=== PATIENT | male | born 1995 | race Two or more races ===

== ENCOUNTER 2023-11-05 13:48 | Inpatient (IN) ==
[2023-11-05] MEDS: SODIUM CHLORIDE 0.9% 1,000 ML IV SCH ×4 (14:46→22:30)
--- NOTE | 2023-11-05 14:47 | Emergency Department Note ---
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 History obtained at bedside from the patient via a [place] school speech language pathologist using iPad software. Patient would not give straight answers as to what type of phone how much of the phone, or when he ingested this. He initially stated it was several months ago, then he stated it was a week ago, then he noted he only began having symptoms in the last 2 to 3 days. He states he complained to medical staff that he had not had a normal bowel movement in several days. Patient admits to abdominal pain, denies vomiting, denies fevers or chills. He denies any prior ingestion of foreign bodies. He denies any prior endoscopy procedure. He denies that he takes any medications or has any other ongoing medical problems. PAST MEDICAL HISTORY:See Below PAST SURGICAL HISTORY:See Below FAMILY HISTORY:See Below SOCIAL HISTORY:See Below HOME MEDICATIONS:See Below ALLERGIES:See Below VITALS:See Below PHYSICAL EXAMINATION: GENERAL: alert, well appearing, well nourished, no distress, non-toxic EYE EXAM: normal conjunctiva, PERRL and EOM's grossly intact OROPHARYNX: no exudate, no erythema, lips, buccal mucosa, and tongue normal and mucous membranes are moist NECK: supple, no nuchal rigidity, no adenopathy, non-tender LUNGS: Clear to auscultation. Normal chest wall mechanics, no w/r/r HEART: no murmurs, S1 normal and S2 normal ABDOMEN: abdomen soft, non-tender, normo-active bowel sounds, no masses, no rebound or guarding. SKIN: no rashes, petechiae, orbruising UPPER EXTREMITIES: upper extremities are grossly normal. FROM, nml pulses b/l. LOWER EXTREMITIES: No pitting edema. FROM, nml pulses b/l. NEURO EXAM: Normal sensorium, cranial nerves II-XII grossly intact, normal speech, no facial droop,nogross weakness of arms, no gross weakness of legs. Gross sensation intact. No ataxia. Vital Signs: reviewed and remarkable Differential Diagnosis: [] MEDICAL DECISION MAKING: This is a 28-year-old male from a local correctional facility who presents due to complaint of abdominal pain and ingested foreign body. Despite use of iPad school speech language pathologist patient will not disclose when he swallowed these items but states he did swallow a complete cell phone. Patient denied any other medical problems. He was afebrile and vital signs stable. Labs drawn and sent, IV established, xrays performed at bedside and interpreted by me and patient monitored on telemetry. He was started on IV fluid hydration. On-call GI was contacted who made arrangements to take the patient to endoscopy for removal of foreign bodies. Patient updated on this plan at bedside and was in agreement. Consultation(s): 1440: On-call GI, Dr. Rehman, notified via [place] text to responded promptly. She will make arrangements for EGD. ER Treatment Provided: See below Diagnostics Interpreted By Me: -Cardiac Monitoring: An order was placed for continuous cardiac monitoring. The monitor shows a rate of 70 with normal sinus rhythm. -Laboratory studies: As stated above and show below. -Imaging studies: X-ray Chest: A single view study of the chest was reviewed and was negative for cardiomegaly, focal infiltrate, effusion, pulmonary edema, or wide mediastinum. Foreign body noted in the stomach. No FA. KUB: Foreign body noted in the stomach. Triage Nursing Note Reviewed Prior/Outside Records Reviewed Past Med/Surg History Problem List (Updated 11/05/23 @ 18:57 by Lance Jones MD) Bipolar disorder Foreign body ingestion (Acute) Social History Smoking Status: Current every day smoker Tobacco Type: Cigarettes Hx Alcohol Use: No Hx Substance Use: Yes Last Used Substance Other:: Before patient in usp Preferred Language: Refrigeration Tech Required: Yes Current Living Situation: Other Current Living Situation Comment: Resides at [place] Feels Safe at Home: Yes Assistive Devices: None Allergies Allergies Allergy/AdvReac Type Severity Reaction Status Date / Time No Known Allergies Allergy Unverified 11/05/23 19:43 Results & Data (ED) Vital Signs Vital Signs - 24 hr 11/05/23 13:50 11/05/23 15:33 11/05/23 15:58 Temperature 36.6 C Temperature Source Temporal Artery Scan Pulse Rate 82 Pulse Rate [Apical] 81 Pulse Rate [Right Finger] 79 Pulse Rhythm [Apical] Regular Pulse Strength [Apical] Normal Pulse Strength [Right Finger] Normal Respiratory Rate 18 16 16 Respiratory Effort / Characteristics Non-Labored Non-Labored Spontaneous Non-Labored Spontaneous Respiratory Depth Normal Normal Normal Respiratory Pattern Regular Regular Regular Blood Pressure 118/80 Blood Pressure [Right Arm] 123/79 121/79 Blood Pressure Mean 92 Blood Pressure Mean [Right Arm] 93 93 Blood Pressure Position [Right Arm] Sitting Sitting Pulse Oximetry 99 100 99 Oxygen Delivery Method Room Air Room Air Room Air Sepsis Recent Fever Within 48 Hours No Sepsis New/Unexplained Change in Mental Status No Sepsis Action Taken by Nursing No Action Required 11/05/23 18:02 11/05/23 18:10 11/05/23 18:20 Temperature 36 C L Temperature Source Temporal Artery Scan Pulse Rate Pulse Rate [Apical] 89 78 81 Pulse Rate [Right Finger] Pulse Rhythm [Apical] Regular Regular Regular Pulse Strength [Apical] Normal Normal Normal Pulse Strength [Right Finger] Respiratory Rate 18 18 16 Respiratory Effort / Characteristics Non-Labored Spontaneous Non-Labored Spontaneous Non-Labored Spontaneous Respiratory Depth Normal Normal Normal Respiratory Pattern Regular Regular Regular Blood Pressure Blood Pressure [Right Arm] 121/84 125/86 114/85 Blood Pressure Mean Blood Pressure Mean [Right Arm] 96 99 94 Blood Pressure Position [Right Arm] Semi-fowlers Semi-fowlers Semi-fowlers Pulse Oximetry 99 100 99 Oxygen Delivery Method Room Air Room Air Room Air Sepsis Recent Fever Within 48 Hours Sepsis New/Unexplained Change in Mental Status Sepsis Action Taken by Nursing Laboratory Data 11/05/23 15:00 11/05/23 15:00 Lab Results 11/05/23 Range/Units 15:00 WBC 6.65 (4.8-10.8) K/ul RBC 5.62 (4.70-6.10) M/uL Hgb 16.2 (14.0-18.0) g/dl Hct 46.8 (42.0-52.0) % MCV 83.3 (80.0-100.0) fL MCH 28.8 (25.0-34.0) pg MCHC 34.6 (32.0-36.0) g/dL RDW Std Deviation 35.7 L (36.4-46.3) fL RDW Coeff of Sophia 11.9 (11.5-14.5) % Plt Count 239 (130-400) K/uL MPV 10.5 (9.4-12.4) fL Immature Gran % (Auto) 0.3 % Neut % (Auto) 62.9 % Lymph % (Auto) 26.2 % [place] % (Auto) 7.8 % Eos % (Auto) 2.3 % Baso % (Auto) 0.5 % Neut # (Auto) 4.19 (1.40-6.50) K/uL Lymph # (Auto) 1.74 (1.20-3.40) K/uL [place] # (Auto) 0.52 (0.11-0.59) K/uL Eos # (Auto) 0.15 (0.00-0.50) K/uL Baso # (Auto) 0.03 (0.00-0.20) K/uL Immature Gran # (Auto) 0.02 (0.01-0.20) K/uL Sodium 136 (136-145) mmol/L Potassium 4.5 (3.5-5.1) mmol/L Chloride 99 (98-107) mmol/L Carbon Dioxide 31 (21-32) mmol/L Anion Gap 6 (3-11) BUN 16 (6-23) mg/dl Creatinine 1.20 (0.6-1.4) mg/dl Est Cr Clr Drug Dosing 96.6 ml/min Est GFR ( Amer) 96.1 ml/min Est GFR (Non-Af Amer) 83.0 ml/min BUN/Creatinine Ratio 13.3 (10-20) Glucose 102 H (70-99(Fasting)) mg/dl Calcium 10.5 H (8.6-10.3) mg/dl Total Bilirubin 1.3 H (0.2-1.0) mg/dl AST 12 L (13-39) U/L ALT 8 (7-52) U/L Alkaline Phosphatase 62 (34-104) U/L Total Protein 7.9 (6.0-8.3) gm/dl Albumin 5.1 H (3.4-5.0) gm/dl Globulin 2.8 (2.5-4.0) gm/dl Albumin/Globulin Ratio 1.8 (0.9-2) Administered Medications Acetaminophen (Ofirmev) 1,000 mg in 100 mls @ 400 mls/hr IV Q8H PRN PRN Reason: Pain or Fever Stop: 11/08/23 18:29 Last Infusion: 11/05/23 21:46 Dose: Infused Documented By: KDKina Admin: 11/05/23 21:19 Dose: 400 mls/hr Documented By: KDKina Sodium Chloride (Nss) 1,000 mls @ 125 mls/hr IV .Q8H [facility] Stop: 11/06/23 13:59 Last Admin: 11/05/23 21:30 Dose: 125 mls/hr [place]ed By: [facility] [place] Medications Sodium Chloride (Nss) 1,000 mls @ 125 mls/hr IV .Q8H KYE Stop: 11/06/23 06:44 Last Infusion: 11/05/23 22:33 Dose: Infused Documented By: Admin: 11/05/23 14:46 Dose: 125 mls/hr Documented By: [facility] Sodium Chloride (Nss) 1,000 mls @ 80 mls/hr IV .[id number] [facility] Stop: 11/06/23 19:29 Last Admin: 11/05/23 20:00 Dose: Not Given Documented By: KDKina Pantoprazole Sodium 40 mg/ (Syringe) 10 mls @ 5 mls/min IV NOW ONE Stop: 11/05/23 20:01 Last Admin: 11/05/23 21:04 Dose: 5 mls/min Documented By: KULDEEP Sodium Chloride (Nss) 1,000 mls @ 80 mls/hr IV .[id number] [facility] Stop: 11/06/23 22:59 Last Admin: 11/05/23 22:30 Dose: Not Given Documented By: [facility] [place] Admin: 11/05/23 22:30 Dose: Not Given Documented By: [facility] [place] Imaging Data Radiologist's Impression: Chest X-Ray 11/05/23 14:03 XR chest 1V portable, XR KUB/Abdomen 1 view HISTORY: Evaluate for foreign body. COMPARISON: None. FINDINGS: No pneumothorax. No pleural effusions. The lungs are clear. The heart is normal in size. There is a right supraclavicular bone which is likely external to the patient. There is an 8.2 cm electronic device in the expected location of the stomach. Qrvr-es-fwgiohbd fecal retention. No evidence for a bowel obstruction. No pneumoperitoneum. No pneumatosis. A 2.2 cm oval-shaped density overlying the left pubic bone also favors an external button. IMPRESSION: 1. An 8.2 cm electronic device within the left upper quadrant likely within the stomach. 2. There is a right supraclavicular button. There is also a 2.2 cm oval-shaped density overlying the left pubic bone which also favors a button. These are likely external to the patient. ACT 112: Negative or not required by law. Electronically signed by: Krzysztof Blake M.D. 11/05/2023 2:52 PM KUB X-Ray 11/05/23 14:03 XR chest 1V portable, XR KUB/Abdomen 1 view HISTORY: Evaluate for foreign body. COMPARISON: None. FINDINGS: No pneumothorax. No pleural effusions. The lungs are clear. The heart is normal in size. There is a right supraclavicular bone which is likely external to the patient. There is an 8.2 cm electronic device in the expected location of the stomach. Xspo-vg-frdjfdjk fecal retention. No evidence for a bowel obstruction. No pneumoperitoneum. No pneumatosis. A 2.2 cm oval-shaped density overlying the left pubic bone also favors an external button. IMPRESSION: 1. An 8.2 cm electronic device within the left upper quadrant likely within the stomach. 2. There is a right supraclavicular button. There is also a 2.2 cm oval-shaped density overlying the left pubic bone which also favors a button. These are likely external to the patient. ACT 112: Negative or not required by law. Electronically signed by: Krzysztof Blake M.D. 11/05/2023 2:52 PM Discharge Plan Visit Data Chief Complaint: Foreign Body Stated Complaint: SWALLOWED FOREIGN OBJECT ED Provider: Camila Medina Discharge Problem: Foreign body ingestion Patient Disposition: Admitted As Inpatient Discharge Instructions Interventions: ED Discharge Assessment Last Done: 11/05/23 15:58
--- NOTE | 2023-11-05 14:53 | XRay Report ---
XR chest 1V portable, XR KUB/Abdomen 1 view HISTORY: Evaluate for foreign body. COMPARISON: None. FINDINGS: No pneumothorax. No pleural effusions. The lungs are clear. The heart is normal in size. Th ere is a right supraclavicular bone which is likely external to the patient. There is an 8.2 cm elect ronic device in the expected location of the stomach. Qlvo-vm-diwbtzec fecal retention. No evidence f or a bowel obstruction. No pneumoperitoneum. No pneumatosis. A 2.2 cm oval-shaped density overlying t he left pubic bone also favors an external button. IMPRESSION: 1. An 8.2 cm electronic device within the left upper quadrant likely within the stomach. 2. There is a right supraclavicular button. There is also a 2.2 cm oval-shaped density overlying the left pubic bone which also favors a button. These are likely external to the patient. ACT 112: Negative or not required by law. Electronically signed by: Krzysztof Blake M.D. 11/05/2023 2:52 PM
[2023-11-05 15:16] LABS: Basophils # (auto) 0.03 K/uL (0.00-0.20); Basophils % (auto) 0.5 %; Eosinophils # (auto) 0.15 K/uL (0.00-0.50); Eosinophils % (auto) 2.3 %; Hematocrit (blood only) 46.8 % (42.0-52.0); Hemoglobin 16.2 g/dl (14.0-18.0); Immature Granulocytes # (auto) 0.02 K/uL (0.01-0.20); Immature Granulocytes % (auto) 0.3 %; Lymphocytes # (auto) 1.74 K/uL (1.20-3.40); Lymphocytes % (auto) 26.2 %; Mean Corpuscular Hemoglobin 28.8 pg (25.0-34.0); Mean Corpuscular Hgb Conc 34.6 g/dL (32.0-36.0); Mean Corpuscular Volume 83.3 fL (80.0-100.0); Mean Platelet Volume 10.5 fL (9.4-12.4); Monocytes # (auto) 0.52 K/uL (0.11-0.59); Monocytes % (auto) 7.8 %; Neutrophils # (auto) 4.19 K/uL (1.40-6.50); Neutrophils % (auto) 62.9 %; Platelet Count 239 K/uL (130-400); RDW Coefficient of Variation 11.9 % (11.5-14.5); RDW Standard Deviation 35.7 fL (36.4-46.3); Red Blood Count 5.62 M/uL (4.70-6.10); White Blood Count 6.65 K/ul (4.8-10.8)
[2023-11-05 15:34] LABS: Albumin Globulin Ratio 1.8 (0.9-2); Albumin Level 5.1 gm/dl (3.4-5.0); BUN Creatinine Ratio 13.3 (10-20); Bilirubin,Total 1.3 mg/dl (0.2-1.0); Calcium 10.5 mg/dl (8.6-10.3); Creatinine Clr Calc Pharmacy 96.6 ml/min; Est GFR (African American) 96.1 ml/min; Globulin 2.8 gm/dl (2.5-4.0); Potassium 4.5 mmol/L (3.5-5.1); Total Protein 7.9 gm/dl (6.0-8.3)
--- NOTE | 2023-11-05 15:52 | Gastrointestinal Consultation ---
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 Abdominal xray shows an electronic device likely in the gastric fundus. Patient History Social History Smoking Status: Never smoker Preferred Language: Samoan Feels Safe at Home: Yes Review of Systems Review of Systems: All systems reviewed & are unremarkable except as noted in HPI & below Physical Exam Constitutional: WD/WN, vitals as above Eyes: PERRL, conjunctivae normal, anicteric sclerae Cardiovascular: RRR, no murmur, no edema Gastrointestinal (Abdomen): Percussion/Palpation: + abdomen tender and abdomen soft Results & Data Vital Signs (Past 12 Hours) Vital Signs Temp Pulse Pulse Resp BP BP Pulse Ox 11/05/23 15:33 79 16 123/79 100 11/05/23 13:50 36.6 C 82 18 118/80 99 O2 Del Method 11/05/23 15:33 Room Air 11/05/23 13:50 Room Air Laboratory Results Lab Results 11/05/23 Range/Units 15:00 WBC 6.65 (4.8-10.8) K/ul RBC 5.62 (4.70-6.10) M/uL Hgb 16.2 (14.0-18.0) g/dl Hct 46.8 (42.0-52.0) % MCV 83.3 (80.0-100.0) fL MCH 28.8 (25.0-34.0) pg MCHC 34.6 (32.0-36.0) g/dL RDW Std Deviation 35.7 L (36.4-46.3) fL RDW Coeff of Sophia 11.9 (11.5-14.5) % Plt Count 239 (130-400) K/uL MPV 10.5 (9.4-12.4) fL Immature Gran % (Auto) 0.3 % Neut % (Auto) 62.9 % Lymph % (Auto) 26.2 % [place] % (Auto) 7.8 % Eos % (Auto) 2.3 % Baso % (Auto) 0.5 % Neut # (Auto) 4.19 (1.40-6.50) K/uL Lymph # (Auto) 1.74 (1.20-3.40) K/uL [place] # (Auto) 0.52 (0.11-0.59) K/uL Eos # (Auto) 0.15 (0.00-0.50) K/uL Baso # (Auto) 0.03 (0.00-0.20) K/uL Immature Gran # (Auto) 0.02 (0.01-0.20) K/uL Sodium 136 (136-145) mmol/L Potassium 4.5 (3.5-5.1) mmol/L Chloride 99 (98-107) mmol/L Carbon Dioxide 31 (21-32) mmol/L Anion Gap 6 (3-11) BUN 16 (6-23) mg/dl Creatinine 1.20 (0.6-1.4) mg/dl Est Cr Clr Drug Dosing 96.6 ml/min Est GFR ( Amer) 96.1 ml/min Est GFR (Non-Af Amer) 83.0 ml/min BUN/Creatinine Ratio 13.3 (10-20) Glucose 102 H (70-99(Fasting)) mg/dl Calcium 10.5 H (8.6-10.3) mg/dl Total Bilirubin 1.3 H (0.2-1.0) mg/dl AST 12 L (13-39) U/L ALT 8 (7-52) U/L Alkaline Phosphatase 62 (34-104) U/L Total Protein 7.9 (6.0-8.3) gm/dl Albumin 5.1 H (3.4-5.0) gm/dl Globulin 2.8 (2.5-4.0) gm/dl Albumin/Globulin Ratio 1.8 (0.9-2) Diagnostic Findings Chest X-Ray 11/05/23 14:03 XR chest 1V portable, XR KUB/Abdomen 1 view HISTORY: Evaluate for foreign body. COMPARISON: None. FINDINGS: No pneumothorax. No pleural effusions. The lungs are clear. The heart is normal in size. There is a right supraclavicular bone which is likely external to the patient. There is an 8.2 cm electronic device in the expected location of the stomach. Epqk-yr-myhqfklw fecal retention. No evidence for a bowel obstruction. No pneumoperitoneum. No pneumatosis. A 2.2 cm oval-shaped density overlying the left pubic bone also favors an external button. IMPRESSION: 1. An 8.2 cm electronic device within the left upper quadrant likely within the stomach. 2. There is a right supraclavicular button. There is also a 2.2 cm oval-shaped density overlying the left pubic bone which also favors a button. These are likely external to the patient. ACT 112: Negative or not required by law. Electronically signed by: Krzysztof Blake M.D. 11/05/2023 2:52 PM KUB X-Ray 11/05/23 14:03 XR chest 1V portable, XR KUB/Abdomen 1 view HISTORY: Evaluate for foreign body. COMPARISON: None. FINDINGS: No pneumothorax. No pleural effusions. The lungs are clear. The heart is normal in size. There is a right supraclavicular bone which is likely external to the patient. There is an 8.2 cm electronic device in the expected location of the stomach. Bwpp-oy-futajnfl fecal retention. No evidence for a bowel obstruction. No pneumoperitoneum. No pneumatosis. A 2.2 cm oval-shaped density overlying the left pubic bone also favors an external button. IMPRESSION: 1. An 8.2 cm electronic device within the left upper quadrant likely within the stomach. 2. There is a right supraclavicular button. There is also a 2.2 cm oval-shaped d ensity overlying the left pubic bone which also favors a button. These are likely external to the patient. ACT 112: Negative or not required by law. Electronically signed by: Krzysztof Blake M.D. 11/05/2023 2:52 PM PG Care Time/CCT Total # of Minutes Spent Total Time Spent with Patient: Total time spent is greater than 50% in coordination of care (as documented) at patient's floor/unit and/or counseling patient: Coding Level of Care Code 50810 OFFICE CONSULT LVL 06/30M Diagnoses Foreign body ingestion T18.9XXA
[2023-11-05] MEDS ORDERED: PROPOFOL IV EMULSION 10 MG/ML 20 ML VIAL IV ONE (16:04)
[2023-11-05] MEDS ORDERED: SUCCINYLCHOLINE CHLORIDE 20 MG/ML 10 ML VIAL IV ONE (16:04)
--- NOTE | 2023-11-05 16:32 | Anesthesiology Consultation ---
Date of Service November 05, 2023 Assessment & Plan ASA ASA2E Proposed Anesthesia Anesthesia Type: General Risk / Benefits Reviewed With: PT / POA / Parent / Guardian, Accepts Plan and Informed Consent Obtained Additional Comments: pt was asked if he wanted an court interpreter used but declined saying he understood/spoke irish well. there were no issues with the H and P in terms of communicating. History Surgery Operation Date: 11/05/23 16:15 Proposed Procedures p EGD Foreign Body Removal - Milli Rehman MD Height/Weight Height: 5 ft 7 in Weight: 83.9 kg Medications Active Medications Generic Name Dose Route Start Last Admin Trade Name Freq PRN Reason Stop Dose Admin Sodium Chloride 1,000 mls @ 125 mls/hr 11/05/23 14:45 11/05/23 14:46 Nss IV 12/05/23 14:44 125 mls/hr .Q8H KYE Administration NPO Date Last Intake of Fluids: 11/05/23 Time Last Intake of Fluids: 11:00 Date Last Intake of Solids: 11/05/23 Time Last Intake of Solids: 11:00 Exercise / Class Metabolic Activity II 4-5 Yardwork/Stairs/Walk up hill Past Anesthesia History No Hx of Anesthesia Complications and No Family Hx of Anesthesia Complications History of PONV No Hx of PONV and No Hx of Motion Sickness Social History Smoking Status: Never smoker Review of Systems denies fever/cough/ colds/ chest pain/ SOB/ ESTEFANY denies ESTEFANY Physical Exam Vital Signs Last Vital Signs Temp 36.6 C 11/05/23 13:50 Pulse 81 11/05/23 15:58 Resp 16 11/05/23 15:58 BP 121/79 11/05/23 15:58 Pulse Ox 99 11/05/23 15:58 O2 Del Method Room Air 11/05/23 15:58 ENMT Mouth: no TMJ abnormality and no dentition abnormality Thyromental Distance: > or= 3.5 Finger Breadths Mallampati Class: II Neck + facial hair; neck extension not limited Respiratory normal respiratory effort; no respiratory distress Auscultation: lungs clear to auscultation bilaterally Cardiovascular Rate/Rhythm: regular rate and regular rhythm Neurologic moves all extremities Psychiatric Orientation: alert and oriented x 3 Testing Laboratory Results 11/05/23 15:00 11/05/23 15:00
[2023-11-05] MEDS ORDERED: ONDANSETRON INJ 2 MG/ML 2 ML VIAL IV PRN ×2 (16:33→18:30)
[2023-11-05] MEDS ORDERED: ePHEDrine sulfate 50 MG/ML AMP IV PRN (16:33)
[2023-11-05] MEDS ORDERED: fentaNYL citrate PF 100 MCG/2 ML VIAL IV PRN (16:33)
[2023-11-05] MEDS ORDERED: HYDROmorphone INJ 1 MG/ML SYRINGE IV PRN (16:33)
[2023-11-05] MEDS ORDERED: ATROPINE SULFATE 0.1 MG/ML 10ML SYR IV PRN (16:33)
[2023-11-05] MEDS ORDERED: fentaNYL citrate PF 100 MCG/2 ML VIAL ONE (16:46)
[2023-11-05] MEDS ORDERED: Patient's ALLERGY Info needs ENTERED STA (16:54)
[2023-11-05] MEDS ORDERED: ROCURONIUM BROMIDE 10 MG/ML 5 ML VIAL IV ONE (16:55)
[2023-11-05] MEDS ORDERED: SUGAMMADEX SODIUM 200 MG/2 ML VIAL IV ONE (16:56)
--- NOTE | 2023-11-05 18:15 | Anesthesiology Progress Note ---
Date of Service November 05, 2023 Anesthesia Post Procedure Vital Signs Vital Signs: Temp Pulse Pulse Pulse Resp BP BP 11/05/23 18:02 36 C L 89 18 121/84 11/05/23 15:58 81 16 121/79 11/05/23 15:33 79 16 123/79 11/05/23 13:50 36.6 C 82 18 118/80 Pulse Ox O2 Del Method 11/05/23 18:02 99 Room Air 11/05/23 15:58 99 Room Air 11/05/23 15:33 100 Room Air 11/05/23 13:50 99 Room Air Transfer of Care Handoff Completed per policy Notes Mental Status: alert / awake / arousable and participated in evaluation Patient Amnestic to Procedure: Yes Nausea / Vomiting: adequately controlled Pain: adequately controlled Airway Patency, RR, SpO2: stable & adequate BP & HR: stable & adequate Hydration State: stable & adequate Anesthetic Complications: no major complications apparent and Pt Satisfied with anesthetic care
--- NOTE | 2023-11-05 18:24 | GI REPORT ---
[facility] Patient: CARMEN HIGGINS : 1995 Sex at : Male Age: 28 Years Procedure: Upper GI endoscopy Date: 11/05/2023 Attending Physician: Milli Rehman MD Referring MD: Claribel Ugalde Indications: - Removal of foreign body in the stomach Medications: - General Anesthesia Complications: - No immediate complications. Estimated Blood Loss: - Estimated blood loss: None. Procedure: - Prior to the procedure, a History and Physical was performed, and patient medications and allergies were reviewed. The patient's tolerance of previous anesthesia was also reviewed. The risks and benefits of the procedure and the sedation options and risks were discussed with the patient. All questions were answered, and informed consent was obtained. Prior Anticoagulants: The patient has taken no anticoagulant or antiplatelet agents. ASA Grade Assessment: II - A patient with mild systemic disease. After reviewing the risks and benefits, the patient was deemed in satisfactory condition to undergo the procedure. - The egd scope was introduced through the mouth and advanced to the third part of the duodenum. - The patient tolerated the procedure well. - The upper GI endoscopy was technically difficult and complex due to presence of foreign body. Findings: - A cell phone and a phone chargerwere found wrapped within pieces of a latex glove in the gastric body. Removal of the concrete buildings assembler was accomplished with a rat tooth grasper. Multiple attempts were made to remove the cell phone using a grasper, snare and net were unsuccessful. The glove was disrupted during attempts to remove the phone and pieces of the glove were removed. Once exposed, the orientation of the phone was such that the LES would and could not accept the foreign body for removal. Impression: - Were found in the stomach. Removal was successful. Recommendation: - NPO. - Continue present medications. - Admit to hospitalist service with surgery consult for surgical removal of remaining intragastric cell phone. Procedure Code(s): - 16405, Esophagogastroduodenoscopy, flexible, transoral; with removal of foreign body(s) Diagnosis Code(s): - T18.2XXA, Foreign body in stomach, initial encounter CPT(R) - 2022 copyright [employer]. All Rights Reserved. The CPT codes, CCI edits and ICD codes generated are intended as suggestions and were generated based on input data. These codes are preliminary and upon marketing agent review may be revised to meet current compliance and payer requirements. The provider is responsible for the final determination of appropriate codes, and modifiers. Milli Rehman MD This document has been electronically signed. Note Initiated:11/05/2023 Note Completed:11/05/2023 6:23 PM \\[email or web address]\Data\Provation\Results\[email or web address]\[id number]
--- NOTE | 2023-11-05 18:58 | History & Physical Report ---
Date of Service November 05, 2023 Assessment & Plan (1) Foreign body ingestion: (2) Bipolar disorder: Plan Foreign body ingestion- Patient ingested a telephone cord and 8.2 cm phone earlier in the day He was taken emergently to the OR, and gastroenterology was able to remove the cord, but was unable to remove the phone Patient will be admitted to the medical telemetry unit overnight, for possible exploratory lap in the a.m. by general surgery Pantoprazole 40 mg IV daily Zofran 4 mg IV every 6 hours as needed NSS at 80 mL/h x 2 L Acetaminophen 1 g IV every 8 hours as needed for mild pain or fever Repeat CBC with differential, chemistry profile and magnesium level in the a.m. Consults to gastroenterology and general surgery History of Present Illness Chief Complaint: The patient presented to the emergency department from local senior living, due to report of swallowing a cell phone and accompanying member of the legislative [place]. He was taken emergently to the OR, and GI was able to successfully remove the phone cord, however, the phone itself is unable to. 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 Gastroenterology was able to successfully remove the member of the legislative assembly, however, the phone still present in the stomach, and gastroenterology and surgery is asked the patient be admitted to the medical service Past Med/Surg History Problem List (Updated 11/05/23 @ 18:57 by Lance Jones MD) Bipolar disorder Foreign body ingestion (Acute) Social History Smoking Status: Never smoker Preferred Language: Stateless Feels Safe at Home: Yes Review of Systems Review of Systems: Review of systems and HPI are limited due to patient cooperation Physical Exam Physical Exam: the patient is awake, chooses to not respond to questions. Well developed and well nourished, normocephalic and atraumatic, lying in bed and in no acute distress. HEENT--PERRL, EOMI, mucous membranes and oropharynx dry. Neck--supple. No JVD. No bruits. Thyroid normal, trachea midline, no adenopathy. Heart--normal S1 and S2. No murmurs, rubs or gallops. Lungs--clear bilaterally, no respiratory distress, no accessory muscle use. Abdomen--normal bowel sounds and soft. Nontender. Nondistended, no hernias or masses, no organomegaly. Extremities--no cyanosis or clubbing. No edema. There are good distal pulses b/l. Dermatologic--normal skin turgor, normal color, no abnormal lymph nodes, no rash. Neurologic--cranial nerves II through XII grossly intact. Rheumatologic--normal range of motion. Psychiatric--normal affect. Results & Data Results & Data Vital Signs (Past 12 Hours) Vital Signs Temp Pulse Pulse Pulse Resp BP BP 11/05/23 18:30 36.6 C 80 18 117/80 11/05/23 18:20 81 16 114/85 11/05/23 18:10 78 18 125/86 11/05/23 18:02 36 C L 89 18 121/84 11/05/23 15:58 81 16 121/79 11/05/23 15:33 79 16 123/79 11/05/23 13:50 36.6 C 82 18 118/80 Pulse Ox O2 Del Method 11/05/23 18:30 98 Room Air 11/05/23 18:20 99 Room Air 11/05/23 18:10 100 Room Air 11/05/23 18:02 99 Room Air 11/05/23 15:58 99 Room Air 11/05/23 15:33 100 Room Air 11/05/23 13:50 99 Room Air Laboratory Results Laboratory Results WBC 6.65 K/ul (4.8-10.8) 11/05/23 15:00 RBC 5.62 M/uL (4.70-6.10) 11/05/23 15:00 Hgb 16.2 g/dl (14.0-18.0) 11/05/23 15:00 Hct 46.8 % (42.0-52.0) 11/05/23 15:00 MCV 83.3 fL (80.0-100.0) 11/05/23 15:00 MCH 28.8 pg (25.0-34.0) 11/05/23 15:00 MCHC 34.6 g/dL (32.0-36.0) 11/05/23 15:00 RDW Std Deviation 35.7 fL (36.4-46.3) L 11/05/23 15:00 RDW Coeff of Sophia 11.9 % (11.5-14.5) 11/05/23 15:00 Plt Count 239 K/uL (130-400) 11/05/23 15:00 MPV 10.5 fL (9.4-12.4) 11/05/23 15:00 Immature Gran % (Auto) 0.3 % 11/05/23 15:00 Neut % (Auto) 62.9 % 11/05/23 15:00 Lymph % (Auto) 26.2 % 11/05/23 15:00 Grant % (Auto) 7.8 % 11/05/23 15:00 Eos % (Auto) 2.3 % 11/05/23 15:00 Baso % (Auto) 0.5 % 11/05/23 15:00 Neut # (Auto) 4.19 K/uL (1.40-6.50) 11/05/23 15:00 Lymph # (Auto) 1.74 K/uL (1.20-3.40) 11/05/23 15:00 Grant # (Auto) 0.52 K/uL (0.11-0.59) 11/05/23 15:00 Eos # (Auto) 0.15 K/uL (0.00-0.50) 11/05/23 15:00 Baso # (Auto) 0.03 K/uL (0.00-0.20) 11/05/23 15:00 Immature Gran # (Auto) 0.02 K/uL (0.01-0.20) 11/05/23 15:00 Sodium 136 mmol/L (136-145) 11/05/23 15:00 Potassium 4.5 mmol/L (3.5-5.1) 11/05/23 15:00 Chloride 99 mmol/L (98-107) 11/05/23 15:00 Carbon Dioxide 31 mmol/L (21-32) 11/05/23 15:00 Anion Gap 6 (3-11) 11/05/23 15:00 BUN 16 mg/dl (6-23) 11/05/23 15:00 Creatinine 1.20 mg/dl (0.6-1.4) 11/05/23 15:00 Est Cr Clr Drug Dosing 96.6 ml/min 11/05/23 15:00 Est GFR ( Amer) 96.1 ml/min 11/05/23 15:00 Est GFR (Non-Af Amer) 83.0 ml/min 11/05/23 15:00 BUN/Creatinine Ratio 13.3 (10-20) 11/05/23 15:00 Glucose 102 mg/dl (70-99(Fasting)) H 11/05/23 15:00 Calcium 10.5 mg/dl (8.6-10.3) H 11/05/23 15:00 Total Bilirubin 1.3 mg/dl (0.2-1.0) H 11/05/23 15:00 AST 12 U/L (13-39) L 11/05/23 15:00 ALT 8 U/L (7-52) 11/05/23 15:00 Alkaline Phosphatase 62 U/L (34-104) 11/05/23 15:00 Total Protein 7.9 gm/dl (6.0-8.3) 11/05/23 15:00 Albumin 5.1 gm/dl (3.4-5.0) H 11/05/23 15:00 Globulin 2.8 gm/dl (2.5-4.0) 11/05/23 15:00 Albumin/Globulin Ratio 1.8 (0.9-2) 11/05/23 15:00 Impressions Chest X-Ray 11/05/23 14:03 XR chest 1V portable, XR KUB/Abdomen 1 view HISTORY: Evaluate for foreign body. COMPARISON: None. FINDINGS: No pneumothorax. No pleural effusions. The lungs are clear. The heart is normal in size. There is a right supraclavicular bone which is likely external to the patient. There is an 8.2 cm electronic device in the expected location of the stomach. Hyod-ca-lqphbmoi fecal retention. No evidence for a bowel obstruction. No pneumoperitoneum. No pneumatosis. A 2.2 cm oval-shaped density overlying the left pubic bone also favors an external button. IMPRESSION: 1. An 8.2 cm electronic device within the left upper quadrant likely within the stomach. 2. There is a right supraclavicular button. There is also a 2.2 cm oval-shaped density overlying the left pubic bone which also favors a button. These are likely external to the patient. ACT 112: Negative or not required by law. Electronically signed by: Krzysztof Blake M.D. 11/05/2023 2:52 PM KUB X-Ray 11/05/23 14:03 XR chest 1V portable, XR KUB/Abdomen 1 view HISTORY: Evaluate for foreign body. COMPARISON: None. FINDINGS: No pneumothorax. No pleural effusions. The lungs are clear. The heart is normal in size. There is a right supraclavicular bone which is likely external to the patient. There is an 8.2 cm electronic device in the expected location of the stomach. Dmrd-fb-tqxfgsml fecal retention. No evidence for a bow el obstruction. No pneumoperitoneum. No pneumatosis. A 2.2 cm oval-shaped density overlying the left pubic bone also favors an external button. IMPRESSION: 1. An 8.2 cm electronic device within the left upper quadrant likely within the stomach. 2. There is a right supraclavicular button. There is also a 2.2 cm oval-shaped density overlying the left pubic bone which also favors a button. These are likely external to the patient. ACT 112: Negative or not required by law. Electronically signed by: Krzysztof Blake M.D. 11/05/2023 2:52 PM Code Status & VTE Plan Code Status Full code VTE Prophylaxis Plan VTE Prophylaxis will be ordered: Yes PG Care Time/CCT Total # of Minutes Spent Total Time Spent with Patient: Total time spent is greater than 50% in coordination of care (as documented) at patient's floor/unit and/or counseling patient: Coding Level of Care Code 63518 INT INP/OBS CARE 2/55MIN Diagnoses Foreign body ingestion T18.9XXA Bipolar disorder F31.9
[2023-11-05] MEDS: PANTOprazole 40 MG in SYRINGE 0 ML IV ONE (21:04)
[2023-11-05] MEDS: ACETAMINOPHEN 1,000 MG/100 ML VIAL IV PRN (21:19)
[2023-11-06] MEDS: KETOROLAC TROMETHAMINE 15 MG/ML VIAL IV ONE (02:43)
[2023-11-06] MEDS: IBUPROFEN 600 MG TAB PO STA (03:02)
--- NOTE | 2023-11-06 07:27 | XRay Report ---
KUB HISTORY: eval location of foreign body COMPARISON: KUB 11/05/2023. FINDINGS: The bowel gas pattern is unremarkable. There are no dilated loops of small bowel to suggest an obstruction. No renal calculi. No ureteral calculi. No pneumoperitoneum or pneumatosis. There is a 6.7 cm electronic device within the left upper quadrant. This is in the expected location of the s tomach and is in a similar location the prior KUB. The lung bases are clear. IMPRESSION: A 6.7 cm electronic device within the left upper quadrant. This is in the expected location of the st omach. ACT 112: Negative or not required by law. Electronically signed by: Krzysztof Blake M.D. 11/06/2023 7:26 AM
[2023-11-06] MEDS ORDERED: MIDAZOLAM HCL 1 MG/ML 2ML VIAL ONE (08:12)
[2023-11-06] MEDS ORDERED: fentaNYL citrate PF 100 MCG/2 ML VIAL ONE ×2 (08:12→09:26)
--- NOTE | 2023-11-06 08:25 | Anesthesiology Consultation ---
Date of Service November 06, 2023 Assessment & Plan Consults Requested medical & cardiac Pulmonary History Surgery Operation Date: 11/05/23 16:15 Proposed Procedures p EGD Foreign Body Removal - Milli Rehman MD Operation Date: 11/06/23 07:00 Proposed Procedures p Open Removal of Foreign Body ( failed attempt via EGD to Remove) - Antonio Henderson DO, FACS Height/Weight Height: 5 ft 7 in Weight: 84.3 kg Allergies Allergy/AdvReac Type Severity Reaction Status Date / Time No Known Allergies Allergy Unverified 11/05/23 19:43 Medications Active Medications Generic Name Dose Route Start Last Admin Trade Name Freq PRN Reason Stop Dose Admin Acetaminophen 1,000 mg in 100 mls @ 400 mls/hr 11/05/23 18:30 11/05/23 21:46 Ofirmev IV 11/08/23 18:29 Infused Q8H PRN Infusion Pain or Fever Sodium Chloride 1,000 mls @ 125 mls/hr 11/05/23 22:00 11/06/23 05:36 Nss IV 11/06/23 13:59 125 mls/hr .Q8H KYE Administration NPO Date Last Intake of Fluids: 11/05/23 Time Last Intake of Fluids: 11:00 Date Last Intake of Solids: 11/05/23 Time Last Intake of Solids: 11:00 Social History Smoking Status: Current every day smoker Hx Alcohol Use: No Hx Substance Use: Yes substance use type: painkillers Last Used Substance Other:: Before patient in senior care Physical Exam Vital Signs Last Vital Signs Temp 36.9 C 11/06/23 08:13 Pulse 67 11/06/23 08:13 Resp 17 11/06/23 08:13 BP 123/71 11/06/23 08:13 Pulse Ox 100 11/06/23 08:13 O2 Del Method Room Air 11/06/23 08:13 Testing Laboratory Results 11/05/23 15:00 11/05/23 15:00
[2023-11-06] MEDS ORDERED: ePHEDrine sulfate 50 MG/ML AMP IV PRN (08:28)
[2023-11-06] MEDS ORDERED: ATROPINE SULFATE 0.1 MG/ML 10ML SYR IV PRN (08:28)
[2023-11-06] MEDS ORDERED: DROPERIDOL 5 MG/2 ML VIAL IV PRN (08:28)
--- NOTE | 2023-11-06 08:28 | Surgery Consultation ---
Date of Consultation November 06, 2023 Assessment & Plan (1) Foreign body ingestion: Gastric foreign body appears to be in the stomach Plan for diagnostic laparoscopy, removal of gastric foreign body, possible bowel resection, possible open Risk of the procedure were discussed to include but not limited to bleeding, infection, leak, damage to surrounding structures, need for future more extensive surgery, and the risk of anesthesia (2) Bipolar disorder: History of Present Illness Attending Physician: Deshaun Reyes History of Present Illness 28-year-old incarcerated male presented with ingested foreign body. He apparently swallowed a cellular phone. Attempts at endoscopic removal yesterday were unsuccessful due to the size of the object preventing it from making it through the GE junction. No prior abdominal surgeries. No other medical problems. No allergies. 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 Current Living Situation: Other Current Living Situation Comment: Resides at [facility] Feels Safe at Home: Yes Assistive Devices: None Review of Systems Review of Systems: All systems reviewed & are unremarkable except as noted in HPI & below Physical Exam Constitutional: WD/WN, vitals as above Respiratory: normal respiratory effort, lungs clear to auscultation Cardiovascular: RRR, no murmur, no edema Gastrointestinal (Abdomen): normal bowel sounds, soft, nontender, no hepatosplenomegaly Results & Data Vital Signs (Past 12 Hours) Vital Signs Temp Pulse Pulse Resp BP Pulse Ox O2 Del Method 11/06/23 08:13 36.9 C 67 17 123/71 100 Room Air 11/06/23 02:21 36.3 C L 76 16 114/67 97 Room Air 11/05/23 22:06 36.6 C 73 18 113/70 100 Room Air 11/05/23 21:41 82 Diagnostic Findings KUB personally reviewed and interpreted agree with assessment of gastric foreign body. XR chest 1V portable, XR KUB/Abdomen 1 view HISTORY: Evaluate for foreign body. COMPARISON: None. FINDINGS: No pneumothorax. No pleural effusions. The lungs are clear. The heart is normal in size. There is a right supraclavicular bone which is likely external to the patient. There is an 8.2 cm electronic device in the expected location of the stomach. Ckfb-px-qrkijoyf fecal retention. No evidence for a bowel obstruction. No pneumoperitoneum. No pneumatosis. A 2.2 cm oval-shaped density overlying the left pubic bone also favors an external button. IMPRESSION: 1. An 8.2 cm electronic device within the left upper quadrant likely within the stomach. 2. There is a right supraclavicular button. There is also a 2.2 cm oval-shaped density overlying the left pubic bone which also favors a button. These are likely external to the patient. PG Care Time/CCT Total # of Minutes Spent Total Time Spent with Patient: Total time spent is greater than 50% in coordination of care (as documented) at patient's floor/unit and/or counseling patient: Coding Level of Care Code 01760 IN/OBS CONSULT LVL 3,45M Diagnoses Foreign body ingestion T18.9XXA Bipolar disorder F31.9
[2023-11-06] MEDS: cefOXitin 2,000 MG in DEXTROSE 5 % MINI-B 50 ML IV SCH (08:58)
[2023-11-06] MEDS ORDERED: SUGAMMADEX SODIUM 200 MG/2 ML VIAL IV ONE (10:09)
[2023-11-06] MEDS: BUPIVACAINE 0.5 % 5 MG/1 ML MPF 30ML VIAL ONE (10:48)
[2023-11-06] MEDS: BUPIVACAINE LIPOSOME 1.3% 266 MG/20 ML VIAL ONE (10:56)
--- NOTE | 2023-11-06 11:17 | Operative Report ---
PG Post Operative Report Pre & Post Diagnosis Operation Date: 11/06/23 07:00 Pre-Op Diagnosis: Foreign body ingestion Post-Op Diagnosis: Foreign body ingestion I identified the patient and participated in the time-out.: Yes Procedure Operation Date: 11/06/23 07:00 Actual Procedures p Diagnostic Laparoscopy, Mini Laparotomy, Gastrotomy with Removal of Foreign Body ( failed attempt via EGD to Remove)(Bilateral) - Antonio Henderson DO, YANCI Surgeon Antonio Henderson DO, YANCI Pan Cleaner Eleanor Parra Estimated Blood Loss 10 Findings Consistent with Post-Op Diagnosis Attempted laparoscopic removal of gastric foreign body, unable to identify within the stomach. Small upper midline laparotomy performed, 6.5 cm cellular phone removed, gastrotomy closed with purple loaded Endo SHARLENE stapler, oversewn with 3-0 silk Lembert's. NG tube confirmed in place, RACH drain placed. Exparel injected. Specimens Gastric foreign body Partial gastrectomy Anesthesia Type General Complications none Disposition Accompanied Patient To Recovery: No Disposition: Recovery Room Indications 28-year-old incarcerated male presented after swallowing a cellular phone, GI unable to remove endoscopically. Plan for diagnostic laparoscopy, removal of gastric foreign body, possible open, possible bowel resection. The risks of the procedure were discussed, all questions were answered, and the patient agreed to proceed with surgery as planned. Description of Procedure The patient was properly identified, consented, and taken to the operating room where he was placed in the supine position. General endotracheal anesthesia was induced. A alcantara catheter, an NG tube, SCDs and a safety belt were placed. Preoperative antibiotics were administered. The patient's abdomen was prepped and draped in the standard sterile fashion. Surgical timeout was performed and all parties were in agreement that this was the correct patient and procedure to be performed and we continued as planned. Incision was made in the right upper quadrant just under the ribs and the Veress needle was inserted. Saline drop test confirmed entry into the abdomen. The abdomen was insufflated with carbon dioxide the patient tolerated without incident. The abdomen was then entered using the Optiview technique and a 5 mm 30 degree scope and a 5 mm port. The trocar was removed and the abdomen explored. There was no damage from initial Veress needle or trocar placement. There is no abnormalities within the 4 quadrants of the abdomen. 5 mm ports were then placed in the supraumbilical position just off midline, and the left upper quadrant x 2. The 5 mm port in the right upper quadrant was eventually replaced with a 12 mm port. The patient was placed in reverse Trendelenburg position. We then began exploring the stomach. I was able to palpate both the NG tube as well as the suspected gastric foreign body. Sonicision was then used to create a gastrotomy in the stomach near the greater curve on the anterior margin. We confirmed entry into the stomach. I was able to identify the NG tube, however I was unable to identify the gastric foreign body. After several minutes I decided to convert to a laparotomy. The stomach wall at the gastrotomy was grasped with a laparoscopic grasper. An upper midline incision was made and deepened down to the fascia with electrocautery. The fascia was then opened in the midline with electrocautery. The peritoneum was entered. The stomach was brought through the incision and grasped with a Reading. I was then able to manually remove the foreign object from the stomach. It had dropped into the cardia. This was removed and passed off the table as specimen. This was consistent with a 6.5 cm cellular phone. No other foreign bodies were identified within the stomach. The gastrotomy was then brought through the incision and closed with a purple loaded 60 mm Endo SHARLENE stapler x 2. The staple line appeared healthy and well-perfused. There is no evidence of leak. This was reinforced with 3-0 silk Lembert sutures. The stomach was then allowed to drop back into the abdomen. The fascia was closed with #1 PDS x 2. We then reentered laparoscopically and irrigated. A 10 mm flat RACH was then placed along the greater curvature of the stomach and the staple line and exited through the left upper quadrant port. This was secured in place with a 2-0 nylon suture. The 12 mm port fascia in the right upper quadrant was closed with a Deven-Prakash device and an 0 Vicryl suture. Laparoscopy was ceased, the ports were removed, and the abdomen was allowed to collapse. The upper midline wound was irrigated with saline and hemostasis was confirmed. This was then closed with interrupted 3-0 Vicryl sutures followed by 4-0 Monocryl running subcuticular suture. The port sites was closed with 4-0 Monocryl subcuticular sutures. Dermabond was placed over all the wounds. Sterile dressing was placed around the RACH drain. The NG tube was left in place and the Alcantara catheter was removed. The patient was extubated in the operating room and taken to the PACU where he recovered without apparent incident. All sponge, instrument and needle counts were correct at the conclusion of the procedure. The patient tolerated the procedure well. The physicians hospital nursing assistant was present and scrubbed for the entire the case. She was critical in positioning the patient, prepping and draping, retraction and exposure, driving the laparoscope, removal of the gastric foreign body, closure of the stomach, closure of the fascia and incisions, and placement of the dressings. I attest to the content of the Intraoperative Record and any orders documented therein. Any exceptions are noted below.
[2023-11-06] MEDS: HYDROmorphone INJ 2 MG/ML SYR/VIAL IV PRN (11:52)
[2023-11-06] MEDS: PANTOprazole 40 MG in SYRINGE 0 ML IV SCH (13:38)
--- NOTE | 2023-11-06 14:29 | XRay Report ---
KUB CLINICAL HISTORY: Enteric tube placement. FINDINGS: 2 AP, portable, supine abdominal radiographs are compared to study performed earlier the 11/06/2023. There is a nonobstructed abdominal bowel gas pattern. A surgical drain projects from the upper abdomen. An enteric tube has been placed. The tip is coiled just below the diaphragm overl bernie the proximal stomach. No evidence of intraperitoneal free air is seen on these supine images. Th ere are no abnormal abdominal calcifications. The bony structures appear intact. IMPRESSION: 1. An enteric tube and surgical drain have been placed as above. 2. No bowel obstruction is seen. Electronically signed by: Omid Charles M.D. 11/06/2023 2:28 PM
--- NOTE | 2023-11-06 16:15 | Anesthesiology Progress Note ---
Date of Service November 06, 2023 Anesthesia Post Procedure Vital Signs Vital Signs: Temp Pulse Pulse Resp BP Pulse Ox O2 Del Method 11/06/23 15:36 37 C 98 H 15 134/79 98 Room Air 11/06/23 12:25 98 H 17 118/92 98 Room Air 11/06/23 12:10 36.9 C 92 H 13 128/89 100 Room Air 11/06/23 12:00 90 16 138/87 100 Oxymask 11/06/23 11:50 89 15 142/92 H 100 Oxymask 11/06/23 11:40 94 H 15 141/91 H 100 Oxymask 11/06/23 11:30 95 H 18 133/94 100 Oxymask 11/06/23 11:22 36.4 C L 98 H 21 135/95 100 Oxymask 11/06/23 08:13 36.9 C 67 17 123/71 100 Room Air 11/06/23 08:00 77 11/06/23 02:21 36.3 C L 76 16 114/67 97 Room Air 11/05/23 22:06 36.6 C 73 18 113/70 100 Room Air 11/05/23 21:41 82 11/05/23 19:22 36.7 C 76 16 118/77 100 Room Air 11/05/23 19:15 80 11/05/23 18:45 89 18 114/79 99 Room Air 11/05/23 18:30 36.6 C 80 18 117/80 98 Room Air 11/05/23 18:20 81 16 114/85 99 Room Air 11/05/23 18:10 78 18 125/86 100 Room Air 11/05/23 18:02 36 C L 89 18 121/84 99 Room Air O2 Flow Rate 11/06/23 15:36 11/06/23 12:25 11/06/23 12:10 11/06/23 12:00 2 11/06/23 11:50 2 11/06/23 11:40 4 11/06/23 11:30 6 11/06/23 11:22 8 11/06/23 08:13 11/06/23 08:00 11/06/23 02:21 11/05/23 22:06 11/05/23 21:41 11/05/23 19:22 11/05/23 19:15 11/05/23 18:45 11/05/23 18:30 11/05/23 18:20 11/05/23 18:10 11/05/23 18:02 Pain Intensity Throat: Pain Intensity: 4 Abdomen: Pain Intensity: 7 Transfer of Care Handoff Completed per policy Notes Mental Status: alert / awake / arousable and participated in evaluation Nausea / Vomiting: adequately controlled Pain: adequately controlled Airway Patency, RR, SpO2: stable & adequate BP & HR: stable & adequate Hydration State: stable & adequate Anesthetic Complications: no major complications apparent and Pt Satisfied with anesthetic care
[2023-11-06] MEDS: GLUCAGON FOR INJ 1 MG VIAL ONE (17:30)
[2023-11-06] MEDS: MoRPHine SULFATE 2 MG/ML CARP IV PRN (18:29)
[2023-11-06] MEDS: SODIUM CHLORIDE 0.9% 1,000 ML IV SCH (18:42)
--- NOTE | 2023-11-06 21:56 | Hospitalist Progress Note ---
Date of Service November 06, 2023 Assessment & Plan (1) Foreign body ingestion: (2) Bipolar disorder: Plan Foreign body ingestion- Patient ingested a telephone cord and 8.2 cm phone earlier in the day He was taken emergently to the OR, and gastroenterology was able to remove the cord, but was unable to remove the phone Patient will be admitted to the medical telemetry unit overnight, for possible exploratory lap in the a.m. by general surgery Pantoprazole 40 mg IV daily Zofran 4 mg IV every 6 hours as needed NSS at 80 mL/h x 2 L Acetaminophen 1 g IV every 8 hours as needed for mild pain or fever Repeat CBC with differential, chemistry profile and magnesium level in the a.m. Consults to gastroenterology and general surgery. Patient tolerated procedure to remove foreign body on 11/05 will monitor. Remain NPO overnight. Admission and Anticipated Discharge Date Admission Date: November 05, 2023 Subjective Patient reports no new symptoms. Review of Systems Review of Systems: All systems reviewed & are unremarkable except as noted in HPI & below Physical Exam Physical Exam: the patient is awake, chooses to not respond to questions. Well developed and well nourished, normocephalic and atraumatic, lying in bed and in no acute distress. HEENT--PERRL, EOMI Results & Data Results & Data Vital Signs (Past 12 Hours) Vital Signs Temp Pulse Resp BP Pulse Ox O2 Del Method O2 Flow Rate 11/06/23 19:49 37.5 C 87 20 138/79 99 Room Air 11/06/23 16:25 98 H 18 132/81 99 Oxymask 2 11/06/23 15:36 37 C 98 H 15 134/79 98 Room Air 11/06/23 14:00 103 H 18 135/86 Oxymask 4 11/06/23 13:30 93 H 20 143/88 H 100 Oxymask 10 11/06/23 13:15 138 H 24 129/85 89 L Room Air 11/06/23 13:10 125 H 20 129/83 91 Room Air 11/06/23 12:55 102 H 20 129/83 95 Room Air 11/06/23 12:25 98 H 17 118/92 98 Room Air 11/06/23 12:10 36.9 C 92 H 13 128/89 100 Room Air 11/06/23 12:00 90 16 138/87 100 Oxymask 2 11/06/23 11:50 89 15 142/92 H 100 Oxymask 2 11/06/23 11:40 94 H 15 141/91 H 100 Oxymask 4 11/06/23 11:30 95 H 18 133/94 100 Oxymask 6 11/06/23 11:22 36.4 C L 98 H 21 135/95 100 Oxymask 8 PG Care Time/CCT Total # of Minutes Spent Total Time Spent with Patient: Total time spent is greater than 50% in coordination of care (as documented) at patient's floor/unit and/or counseling patient: Coding Level of Care Code 90329 SUB INP/OBS CARE 2/35MIN Diagnoses Foreign body ingestion T18.9XXA Bipolar disorder F31.9
[2023-11-07] MEDS: MoRPHine SULFATE 4 MG/ML 1 ML CARP\\VIAL IV PRN (03:48)
[2023-11-07 07:58] LABS: Basophils # (auto) 0.02 K/uL (0.00-0.20); Basophils % (auto) 0.2 %; Eosinophils # (auto) 0.03 K/uL (0.00-0.50); Eosinophils % (auto) 0.3 %; Hematocrit (blood only) 42.4 % (42.0-52.0); Hemoglobin 14.5 g/dl (14.0-18.0); Immature Granulocytes # (auto) 0.02 K/uL (0.01-0.20); Immature Granulocytes % (auto) 0.2 %; Lymphocytes # (auto) 2.43 K/uL (1.20-3.40); Lymphocytes % (auto) 22.2 %; Mean Corpuscular Hgb Conc 34.2 g/dL (32.0-36.0); Mean Platelet Volume 10.9 fL (9.4-12.4); Monocytes # (auto) 0.87 K/uL (0.11-0.59); Monocytes % (auto) 7.9 %; Neutrophils % (auto) 69.2 %; Platelet Count 211 K/uL (130-400); RDW Coefficient of Variation 11.8 % (11.5-14.5); RDW Standard Deviation 34.6 fL (36.4-46.3); Red Blood Count 5.17 M/uL (4.70-6.10); White Blood Count 10.97 K/ul (4.8-10.8)
[2023-11-07 08:10] LABS: BUN Creatinine Ratio 12.5 (10-20); Est GFR (African American) 137.4 ml/min; Est GFR (Non-African American) 118.6 ml/min
--- NOTE | 2023-11-07 10:15 | Surgery Progress Note ---
Date of Service November 07, 2023 Assessment & Plan (1) Foreign body ingestion: Plan: POD#1 attempted laparoscopic converted to mini laparotomy with gastrotomy and removal of foreign body ingestion wbc 10 vitals stable NGT in place draining small amount of clear/brown output Incisions c/d/i with skin glue, no signs of infection. RACH drain serosang Will plan on d/c NGT and start pt on clears Leave RACH for now while diet advancing OOB ambulating Admission and Anticipated Discharge Date Admission Date: November 05, 2023 Supervising Physician Co-Signing Physician Notes Patient seen and examined, agree with above. POD #1 laparotomy with removal of gastric foreign body through gastrotomy with closure. Doing well, sore at incision site. NG tube removed this morning, tolerated clears. Afebrile with stable vitals, abdomen soft, appropriate tender to palpation, incision without infection. RACH drain serosanguineous. Labs unremarkable. Will advance to full liquids. Consider regular diet over the next 24 to 48 hours. Subjective Patient okay, expected post op pain. No nausea/vomiting. Small gas, no BM. Is hungry. Says he is voiding Physical Exam Physical Exam: awake/alert, no distress Respiratory: normal respiratory effort Gastrointestinal (Abdomen): Inspection/Auscultation: + abdominal surgical incision (c/d/i with skin glue) and + abdominal surgical drain present (serosang 20cc over last 12 hrs); abdomen not distended Percussion/Palpation: + abdomen tender (expected vicenta incisional discomfort) and abdomen soft NGT in place, small amount of light brown output Results & Data Vital Signs (Past 12 Hours) Vital Signs Temp Pulse Resp BP Pulse Ox O2 Del Method 11/07/23 07:02 98.8 F 76 19 124/74 97 Room Air 11/07/23 03:41 99.1 F 74 14 136/84 100 Room Air 11/06/23 23:03 99.1 F 82 18 131/78 97 Room Air PG Care Time/CCT Total # of Minutes Spent Total Time Spent with Patient: Total time spent is greater than 50% in coordination of care (as documented) at patient's floor/unit and/or counseling patient: Coding Level of Care Code 04788 Post Operative Follow-Up Diagnoses Foreign body ingestion T18.9XXA
[2023-11-07] MEDS: DOCUSATE SODIUM/SENNA 50/8.6MG TAB PO SCH (19:05)
--- NOTE | 2023-11-07 21:17 | Hospitalist Progress Note ---
Date of Service November 07, 2023 Assessment & Plan (1) Foreign body ingestion: (2) Bipolar disorder: Plan Foreign body ingestion- Patient ingested a telephone cord and 8.2 cm phone earlier in the day He was taken emergently to the OR, and gastroenterology was able to remove the cord, but was unable to remove the phone Patient will be admitted to the medical telemetry unit overnight, for possible exploratory lap in the a.m. by general surgery Pantoprazole 40 mg IV daily Zofran 4 mg IV every 6 hours as needed NSS at 80 mL/h x 2 L Acetaminophen 1 g IV every 8 hours as needed for mild pain or fever Repeat CBC with differential, chemistry profile and magnesium level in the a.m. Consults to gastroenterology and general surgery. Patient tolerated procedure to remove foreign body on 11/05 Now tolerating clears. COntinue to monitor. will transfer to medical. Admission and Anticipated Discharge Date Admission Date: November 05, 2023 Subjective 28 yo male reports having pain when he urinates due to having to strain his abdominal muscles that were cut for the operation Review of Systems Review of Systems: All systems reviewed & are unremarkable except as noted in HPI & below Physical Exam Physical Exam: the patient is awake, chooses to not respond to questions. Well developed and well nourished, normocephalic and atraumatic, lying in bed and in no acute distress. HEENT--PERRL, EOMI Results & Data Results & Data Vital Signs (Past 12 Hours) Vital Signs Temp Pulse Pulse Resp BP Pulse Ox O2 Del Method 11/07/23 20:05 37.3 C 97 H 18 133/79 97 Room Air 11/07/23 19:08 37.3 C 82 16 138/87 97 Room Air 11/07/23 15:13 37.6 C H 74 19 131/81 96 Room Air 11/07/23 10:58 37.5 C 85 19 132/79 97 Room Air PG Care Time/CCT Total # of Minutes Spent Total Time Spent with Patient: Total time spent is greater than 50% in coordination of care (as documented) at patient's floor/unit and/or counseling patient: Coding Level of Care Code 66994 SUB INP/OBS CARE 2/35MIN Diagnoses Foreign body ingestion T18.9XXA Bipolar disorder F31.9
[2023-11-08 07:06] LABS: Hematocrit (blood only) 44.4 % (42.0-52.0); Mean Corpuscular Hemoglobin 28.1 pg (25.0-34.0); Mean Corpuscular Hgb Conc 33.8 g/dL (32.0-36.0); Mean Corpuscular Volume 83.1 fL (80.0-100.0); Mean Platelet Volume 10.6 fL (9.4-12.4); Platelet Count 222 K/uL (130-400); Red Blood Count 5.34 M/uL (4.70-6.10); White Blood Count 8.81 K/ul (4.8-10.8)
[2023-11-08 07:26] LABS: BUN Creatinine Ratio 10.3 (10-20); Calcium 9.6 mg/dl (8.6-10.3); Creatinine Clr Calc Pharmacy 133.5 ml/min; Est GFR (African American) 138.1 ml/min; Est GFR (Non-African American) 119.1 ml/min; Potassium 3.9 mmol/L (3.5-5.1)
[2023-11-08] MEDS: POLYETHYLENE (MIRALAX) 17 GM PACK PO SCH (08:23)
--- NOTE | 2023-11-08 09:36 | Surgery Progress Note ---
Date of Service November 08, 2023 Assessment & Plan (1) S/P laparotomy: Plan: POD#2 laparotomy w/ removal gastric foreign body and stapled closure of gastrostomy, doing well advance to pureed diet cont drain potential d/c tomorrow, will remove drain (2) Bipolar disorder: (3) Foreign body ingestion: Admission and Anticipated Discharge Date Admission Date: November 05, 2023 Subjective POD#2 removal of gastric foreign body. Tolerating liquids, passing gas, sore at incision site. Physical Exam Constitutional: WD/WN, vitals as above Respiratory: normal respiratory effort, lungs clear to auscultation Cardiovascular: RRR, no murmur, no edema Gastrointestinal (Abdomen): normal bowel sounds, soft, nontender, no hepatosplenomegaly Inspection/Auscultation: + abdominal surgical incision (no infection) and + abdominal surgical drain present (ss) Results & Data Vital Signs (Past 12 Hours) Vital Signs Temp Pulse Resp BP Pulse Ox O2 Del Method 11/08/23 08:03 36.8 C 73 15 121/88 98 Room Air Laboratory Results Laboratory Results - last 24 hr 11/08/23 06:35 WBC 8.81 RBC 5.34 Hgb 15.0 Hct 44.4 MCV 83.1 MCH 28.1 MCHC 33.8 RDW Std Deviation 36.0 L RDW Coeff of Sophia 12.0 Plt Count 222 MPV 10.6 Sodium 137 Potassium 3.9 Chloride 100 Carbon Dioxide 29 Anion Gap 8 BUN 9 Creatinine 0.87 Est Cr Clr Drug Dosing 133.5 Est GFR ( Amer) 138.1 Est GFR (Non-Af Amer) 119.1 BUN/Creatinine Ratio 10.3 Glucose 94 Calcium 9.6 PG Care Time/CCT Total # of Minutes Spent Total Time Spent with Patient: Total time spent is greater than 50% in coordination of care (as documented) at patient's floor/unit and/or counseling patient: Coding Level of Care Code None Diagnoses S/P laparotomy Z98.890 Bipolar disorder F31.9 Foreign body ingestion T18.9XXA
[2023-11-08] MEDS: ENOXAPARIN INJ 40 MG/0.4 ML SYR SQ SCH (10:24)
--- NOTE | 2023-11-08 20:41 | Hospitalist Progress Note ---
Date of Service November 08, 2023 Assessment & Plan (1) Foreign body ingestion: (2) Bipolar disorder: Plan Foreign body ingestion- Patient ingested a telephone cord and 8.2 cm phone earlier in the day He was taken emergently to the OR, and gastroenterology was able to remove the cord, but was unable to remove the phone Patient will be admitted to the medical telemetry unit overnight, for possible exploratory lap in the a.m. by general surgery Pantoprazole 40 mg IV daily Zofran 4 mg IV every 6 hours as needed NSS at 80 mL/h x 2 L Acetaminophen 1 g IV every 8 hours as needed for mild pain or fever Repeat CBC with differential, chemistry profile and magnesium level in the a.m. Consults to gastroenterology and general surgery. Patient tolerated procedure to remove foreign body on 11/05 Now tolerating a regular pureer diet Continue to monitor. Possible discharge on 11/08 Admission and Anticipated Discharge Date Admission Date: November 05, 2023 Subjective 28 YO MALE reports no new symptoms. Review of Systems Review of Systems: All systems reviewed & are unremarkable except as noted in HPI & below Physical Exam Physical Exam: the patient is awake, chooses to not respond to questions. Well developed and well nourished, normocephalic and atraumatic, lying in bed and in no acute distress. HEENT--PERRL, EOMI ABD: SOFT, bs+, BANDAGE AROUND INCISION NOTED. Results & Data Results & Data Vital Signs (Past 12 Hours) Vital Signs Temp Pulse Resp BP Pulse Ox O2 Del Method 11/08/23 20:18 37.2 C 81 18 113/76 97 Room Air 11/08/23 15:50 36.9 C 88 16 122/70 96 Room Air PG Care Time/CCT Total # of Minutes Spent Total Time Spent with Patient: Total time spent is greater than 50% in coordination of care (as documented) at patient's floor/unit and/or counseling patient: Coding Level of Care Code 67089 SUB INP/OBS CARE 2/35MIN Diagnoses Foreign body ingestion T18.9XXA Bipolar disorder F31.9
[2023-11-09 07:59] LABS: Hematocrit (blood only) 43.4 % (42.0-52.0); Hemoglobin 14.8 g/dl (14.0-18.0); Mean Corpuscular Hemoglobin 28.5 pg (25.0-34.0); Mean Corpuscular Hgb Conc 34.1 g/dL (32.0-36.0); Mean Corpuscular Volume 83.6 fL (80.0-100.0); Mean Platelet Volume 10.4 fL (9.4-12.4); Platelet Count 226 K/uL (130-400); RDW Coefficient of Variation 11.9 % (11.5-14.5); RDW Standard Deviation 35.8 fL (36.4-46.3); Red Blood Count 5.19 M/uL (4.70-6.10); White Blood Count 6.66 K/ul (4.8-10.8)
[2023-11-09 08:22] LABS: BUN Creatinine Ratio 12.1 (10-20); Calcium 9.6 mg/dl (8.6-10.3); Creatinine Clr Calc Pharmacy 127.6 ml/min; Est GFR (African American) 134.3 ml/min; Est GFR (Non-African American) 115.9 ml/min; Potassium 3.9 mmol/L (3.5-5.1)
[2023-11-09] MEDS: MoRPHine SULFATE 2 MG/ML CARP IV STA (11:18)
--- NOTE | 2023-11-09 12:22 | Surgery Progress Note ---
Date of Service November 09, 2023 Assessment & Plan (1) S/P laparotomy: Plan POD 3 doing well may advance to reg diet , small meals RACH drain removed today keep bandaid or dry gauze over drain site until healed f/u o/p with Dr. Henderson in 2 weeks Admission and Anticipated Discharge Date Admission Date: November 05, 2023 Supervising Physician Co-Signing Physician Notes Patient seen and examined, labs reviewed, agree with above. POD #3 laparotomy with removal of gastric foreign body and closure of the stomach. Doing well, t olerated pured diet. RACH drain removed. Afebrile stable vitals. Abdomen soft, nontender. Incisions without infection. Labs normal. Will advance to regular diet. Okay to discharge from general surgery standpoint Subjective Pt tolerating purred diet Review of Systems Constitutional: no fever and no chills Respiratory: no dyspnea Cardiovascular: no chest pain Gastrointestinal: + abdominal pain; no nausea and no vomit ing Physical Exam Constitutional: cooperative and comfortable; no acute distress Respiratory: normal respiratory effort and able to speak in complete sentences; no respiratory distress Cardiovascular: Rate/Rhythm: regular rate Gastrointestinal (Abdomen): Inspection/Auscultation: + abdominal surgical incision (CDI); abdomen not distended Percussion/Palpation: abdomen soft Results & Data Vital Signs (Past 12 Hours) Vital Signs Temp Pulse Resp BP Pulse Ox O2 Del Method 11/09/23 08:20 97.5 F L 56 L 16 117/76 97 Room Air Results CBC w Diff Results: RBC 5.19 M/uL (4.70-6.10) 11/09/23 WBC 6.66 K/ul (4.8-10.8) 11/09/23 Hgb 14.8 g/dl (14.0-18.0) 11/09/23 Hct 43.4 % (42.0-52.0) 11/09/23 MCV 83.6 fL (80.0-100.0) 11/09/23 MCH 28.5 pg (25.0-34.0) 11/09/23 MCHC 34.1 g/dL (32.0-36.0) 11/09/23 RDW Standard Deviation 35.8 fL (36.4-46.3) L 11/09/23 RDW Coefficient of Variation 11.9 % (11.5-14.5) 11/09/23 Plt Count 226 K/uL (130-400) 11/09/23 MPV 10.4 fL (9.4-12.4) 11/09/23 Neutrophils (%) (Auto) 69.2 % 11/07/23 Lymphocytes (%) (Auto) 22.2 % 11/07/23 Monocytes # (Auto) 0.87 K/uL (0.11-0.59) H 11/07/23 Eosinophils # (Auto) 0.03 K/uL (0.00-0.50) 11/07/23 Immature Granulocyte % (Auto) 0.2 % 11/07/23 Neutrophils # (Auto) 7.60 K/uL (1.40-6.50) H 11/07/23 Lymphocytes # (Auto) 2.43 K/uL (1.20-3.40) 11/07/23 Monocytes # (Auto) 0.87 K/uL (0.11-0.59) H 11/07/23 Eosinophils # (Auto) 0.03 K/uL (0.00-0.50) 11/07/23 Basophils # (Auto) 0.02 K/uL (0.00-0.20) 11/07/23 Immature Granulocyte # (Auto) 0.02 K/uL (0.01-0.20) 4 PG Care Time/CCT Total # of Minutes Spent Total Time Spent with Patient: Total time spent is greater than 50% in coordination of care (as documented) at patient's floor/unit and/or counseling patient: Coding Level of Care Code 78885 Post Operative Follow-Up Diagnoses S/P laparotomy Z98.890
[2023-11-09 21:42] VITALS: PULSE 67
--- NOTE | 2023-11-09 22:44 | Hospitalist Progress Note ---
Date of Service November 09, 2023 Assessment & Plan (1) Foreign body ingestion: (2) Bipolar disorder: Plan Foreign body ingestion- Patient ingested a telephone cord and 8.2 cm phone earlier in the day He was taken emergently to the OR, and gastroenterology was able to remove the cord, but was unable to remove the phone Patient will be admitted to the medical telemetry unit overnight, for possible exploratory lap in the a.m. by general surgery Pantoprazole 40 mg IV daily Zofran 4 mg IV every 6 hours as needed NSS at 80 mL/h x 2 L Acetaminophen 1 g IV every 8 hours as needed for mild pain or fever Repeat CBC with differential, chemistry profile and magnesium level in the a.m. Consults to gastroenterology and general surgery. Patient tolerated procedure to remove foreign body on 11/05 Now tolerating a regular pureer diet Continue to monitor. due to uncontrolled pain will keep patient another night. discharge on 11/09 Admission and Anticipated Discharge Date Admission Date: November 05, 2023 Subjective 28 yo male reports no new symptoms. Has pain with RACH drain was removed. Review of Systems 2 Review of Systems: All systems reviewed & are unremarkable except as noted in HPI & below Physical Exam Physical Exam: the patient is awake, Well developed and well nourished, normocephalic and atraumatic, lying in bed and in no acute distress. HEENT--PERRL, EOMI ABD: SOFT, bs+, BANDAGE AROUND INCISION NOTED. Results & Data Results & Data Vital Signs (Past 12 Hours) Vital Signs Temp Pulse Resp BP Pulse Ox O2 Del Method 11/09/23 21:41 37 C 67 12 113/71 97 Room Air 11/09/23 14:37 36.8 C 71 16 112/71 98 Room Air PG Care Time/CCT Total # of Minutes Spent Total Time Spent with Patient: Total time spent is greater than 50% in coordination of care (as documented) at patient's floor/unit and/or counseling patient: Coding Level of Care Code 40996 SUB INP/OBS CARE 2/35MIN Diagnoses Foreign body ingestion T18.9XXA Bipolar disorder F31.9
[2023-11-10 07:29] LABS: Hematocrit (blood only) 43.6 % (42.0-52.0); Hemoglobin 15.2 g/dl (14.0-18.0); Mean Corpuscular Hemoglobin 28.8 pg (25.0-34.0); Mean Corpuscular Hgb Conc 34.9 g/dL (32.0-36.0); Mean Corpuscular Volume 82.6 fL (80.0-100.0); Mean Platelet Volume 10.4 fL (9.4-12.4); Platelet Count 222 K/uL (130-400); RDW Coefficient of Variation 11.9 % (11.5-14.5); RDW Standard Deviation 35.4 fL (36.4-46.3); Red Blood Count 5.28 M/uL (4.70-6.10); White Blood Count 5.71 K/ul (4.8-10.8)
[2023-11-10 07:45] LABS: Calcium 9.6 mg/dl (8.6-10.3); Creatinine Clr Calc Pharmacy 123.5 ml/min; Est GFR (African American) 129.2 ml/min; Est GFR (Non-African American) 111.5 ml/min
[2023-11-10 08:04] VITALS: BP 108/67; RESP 16; TEMP 98.4; O2SAT 98
[2023-11-10] MEDS: ACETAMINOPHEN 325 MG TAB PO SCH (09:17)
--- NOTE | 2023-11-12 15:34 | Discharge Summary ---
Discharge Summary Date of Service November 10, 2023 Principal Dx & Hospital Course #1 = Principal Diagnosis (1) Foreign body ingestion: (2) Bipolar disorder: Plan Foreign body ingestion- Patient ingested a telephone cord and 8.2 cm phone earlier in the day He was taken emergently to the OR, and gastroenterology was able to remove the cord, but was unable to remove the phone Patient will be admitted to the medical telemetry unit overnight, for possible exploratory lap in the a.m. by general surgery Pantoprazole 40 mg IV daily Zofran 4 mg IV every 6 hours as needed NSS at 80 mL/h x 2 L Acetaminophen 1 g IV every 8 hours as needed for mild pain or fever Repeat CBC with differential, chemistry profile and magnesium level in the a.m. Consults to gastroenterology and general surgery. Patient tolerated procedure to remove foreign body on 11/05 Now tolerating a regular pureer diet Continue to monitor. due to uncontrolled pain will keep patient another night. discharge on 11/09 Admission HPI Per Admitting Provider The patient is a 28-year-old male prisoner with past medical history of bipolar disorder, who presented to the emergency department after swallowing a cell phone and accompanying vice president marketing & development. Gastroenterology was able to successfully remove the vice president marketing & development, however, the phone still present in the stomach, and gastroenterology and surgery is asked the patient be admitted to the medical service Discharge Exam the patient is awake, Well developed and well nourished, normocephalic and atraumatic, lying in bed and in no acute distress. HEENT--PERRL, EOMI ABD: SOFT, bs+, BANDAGE AROUND INCISION NOTED. Updated Medication List Medication Instructions Recorded Confirmed Type acetaminophen 325 mg tablet 650 mg (2 x 325 mg) PO QID #0 tabs 11/10/23 Rx Hospital Stay Data Consultations 11/05/23 15:24 Consult Gastroenterology Stat 11/05/23 17:58 Consult General Surgery Stat 11/05/23 18:05 Consult Hospitalist Stat Procedures Performed Operation Date: 11/06/23 07:00 Actual Procedures p Mini Laparotomy, Gastrotomy with Removal of Foreign Body ( failed attempt via EGD to Remove)(Bilateral) - Antonio Henderson DO, FACS s Diagnostic Laparoscopy, (Bilateral) - Antonio Henderson DO, FACS Pending Results Patient Have Any Pending Studies at Discharge: Yes Discharge Instructions Given to Patient (Per Discharging Provider) You may take Tylenol #3 if your facility provides it for pain. Otherwise you may take Tylenol or Ibuprofen. Do not exceed the daily limit of acetaminophen within a 24 hour time period. You have skin glue over your incisions called dermabond. you may shower with this on. It will tend to dissolve and fall off within a couple weeks. Do not pick at the skin glue You may keep a dry dressing over the area where your surgical drain was removed with dry gauze/tape or a bandaid. Change daily and as needed until the area is healed and no longer draining fluid. Coding Diagnoses Foreign body ingestion T18.9XXA Bipolar disorder F31.9
== END 2023-11-10 15:34 | DRG 328 ==
LOC: ED 13:48 → OR 15:58 → 2S 18:25 → SUATTDRO 18:25 → 3N 11-07 20:02